=== PATIENT | female | born 2000 | race Two or more races ===

== ENCOUNTER 2024-01-01 13:10 | Emergency (ER) | payer MEDICAID ==
[~2024-01-01] VITALS: Ht 165.1 cm; Wt 70.0 kg
[2024-01-01 13:17] VITALS: O2SAT 99
[2024-01-01] MEDS: SODIUM CHLORIDE 0.9% 1,000 ML IV ONE (13:35)
[2024-01-01 13:47] LABS: BASOPHILS % 0.3 % (0.0-2.0); DIFFERENTIAL COMMENT 0; EOSINOPHILS % 0.6 % (0.0-5.0); HEMATOCRIT. 31.6 % (36.0-48.0); LYMPHOCYTES % 13.8 % (20.0-50.0); MEAN CORPUSCULAR HEMOGLOBIN 24.5 pg (28.0-32.0); MEAN CORPUSCULAR HGB CONC 31.6 g/dL (31.0-37.0); MEAN CORPUSCULAR VOLUME 77.6 fL (81.0-99.0); MEAN PLATELET VOLUME 8.7 fl (7.4-10.4); NEUTROPHILS % 73.3 % (40.0-76.0); PLATELET 230 x1000/uL (130-400); RED BLOOD CELL COUNT 4.08 mill/uL (4.2-5.4); WHITE BLOOD COUNT 6.6 x1000/uL (4.5-11.0)
[2024-01-01 13:50] LABS: CHLORIDE 107 mEq/L (98-107); POTASSIUM 3.9 mEq/L (3.5-5.1); SODIUM 133 mEq/L (136-145)
[2024-01-01 13:51] LABS: CARBON DIOXIDE 20 mEq/L (21-32)
[2024-01-01 13:56] LABS: CREATININE 0.4 mg/dL (0.6-1.0); GLUCOSE 95 mg/dL (70-105)
[2024-01-01 14:28] LABS: B-HCG QUANTITATIVE 15138 mIU/mL (<3); UREA NITROGEN BLOOD < 5 mg/dL (9-23)
[2024-01-01 14:33] VITALS: BP 125/80; PULSE 90; RESP 19; TEMP 36.66960; O2SAT 100
[2024-01-01] MEDS ORDERED: ONDANSETRON HCL 4MG/2ML INJ IV ONE (15:00)
== END 2024-01-01 15:05 | disposition short-term general hospital (02) ==
LOC: ER 13:10
DX: O62.8 Other abnormalities of forces of labor (principal); J45.909 Unspecified asthma, uncomplicated; Z3A.38 38 weeks gestation of pregnancy
CPT/HCPCS: 99285; 96360; 76805; 80048; 81025; 84702; 85025; 86850; 86900; 86901; 36415; J7030

== ENCOUNTER 2024-09-06 20:12 | Emergency (ER) | payer MEDICAID ==
[~2024-09-06] VITALS: Ht 162.6 cm; Wt 89.9 kg
[2024-09-06 21:05] VITALS: BP 145/84; TEMP 36.5; O2SAT 99
[2024-09-06 21:06] VITALS: PULSE 65; RESP 16; O2SAT 100
[2024-09-06] MEDS: FLUORESCEIN SODIUM 1MG/STRIP RIGHTEYE ONE (22:00)
[2024-09-06] MEDS ORDERED: ERYT1OIN6 RIGHTEYE (22:45)
[2024-09-06] MEDS: TETRACAINE 0.5% OPHTH DROPS 4ML RIGHTEYE ONE (23:01)
== END 2024-09-06 23:11 | disposition home or self-care (01) ==
LOC: ER 20:24
DX: H57.11 Ocular pain, right eye (principal); J45.909 Unspecified asthma, uncomplicated
CPT/HCPCS: 99283